=== PATIENT | female | born 1945 | race Caucasian/White ===

== ENCOUNTER 2016-04-27 06:51 | Day surgery (SDC) | payer MEDICARE ==
[2016-04-15 09:33] VITALS: BP 155/71
[~2016-04-27 06:51] MED LIST: LACTULOSE 10 G/15 ML BTL PO PRN
--- OUTSIDE RECORDS SUMMARY | 2016-04-27 06:54 | XMS REPORT | Continuity of Care Document ---
:1945 Author Organization [facility] ([facility]) Address [address] [place] [address] Phone [phone] Care Team Providers Name Role Phone Alison Ghotra Primary Care Provider [phone] Source Comments This disclosure is being made pursuant to the Care Everywhere program, applicable federal and state laws, and may not contain all informaitonavailable regarding this patient.[facility] ([facility]) Active Allergies and Adverse Reactions Allergen Noted Date Severity Reactions Comments Cephalexin 02/12/2015 Rash Doxycycline 02/12/2015 Urticaria (Hives) Quinolones 02/12/2015 Urticaria (Hives) Current Medications Prescription Sig. Disp. Refills Start Date End Date Status buPROPion (WELLBUTRIN Take 300 mg Active XL) 300 mg extended by mouth release tablet 24 hour Every morning escitalopram oxalate Take 20 mg Active 20 mg tablet by mouth daily gemfibrozil 600 mg Take 600 mg Active tablet by mouth 2 times daily atenolol 50 mg tablet Take 50 mg Active by mouth daily ascorbic acid (VITAMIN Take 500 mg Active C) 500 mg tablet by mouth daily magnesium oxide 250 mg Take 250 mg Active tablet by mouth daily aspirin 81 mg EC Take 81 mg Active tablet by mouth daily calcium Take 1 Active carbonate-vitamin D3 tablet by w/ minerals 600 mg mouth daily calcium- 400 unit per tablet docusate 100 mg Take 1 14 capsule 1 04/03/2015 Active capsule capsule (100 mg total) by mouth 2 times daily as needed. ondansetron 8 mg Take 1 30 tablet 5 04/28/2015 Active tablet tablet (8 mg total) by mouth every 6 hours as needed. PROchlorPERAZINE 10 mg Take 1 30 tablet 5 04/28/2015 Active tablet tablet (10 mg total) by mouth every 6 hours as needed. SF 5000 PLUS 1.1 % 4 07/18/2015 Active dental cream letrozole 2.5 mg Take 1 90 tablet 3 09/01/2015 Active tablet tablet (2.5 mg total) by mouth daily. dexlansoprazole Take 60 mg Active (DEXILANT) [address] by mouth capsule daily. VITAMIN D2 50,000 unit Take 50,000 1 02/07/2015 Discontinued capsule Units by 7 mouth every week Active Problems Problem Noted Date PONV (postoperative nausea and vomiting) 04/03/2015 Carcinoma of breast 02/12/2015 Malignant neoplasm of right female breast 02/03/2015 Most Recent Encounters Date Type Specialty Providers Description 04/12/2016 Hospital Encounter Hematology and [facility] Subj: Upcoming Appt Oncology MD Mamta Reminder 03/18/2016 Hospital Encounter Hematology and [facility] Subj: Upcoming Appt Oncology MD Mamta Reminder 02/16/2016 Hospital Encounter Hematology and [facility] Subj: Upcoming Appt Oncology MD Mamta Reminder Social History Tobacco Use Types Packs/Day Years Used Date Never Smoker Smokeless Tobacco: Never Used Tobacco Cessation:Counseling Given: Yes Comments: Alcohol Use Drinks/Week oz/Week Comments Yes 1 Cans of beer Last Filed Vital Signs Vital Sign Reading Time Taken Blood Pressure 130/78 04/12/2016 9:00 AM MACHINE II [employer] Pulse 76 04/12/2016 9:00 AM MACHINE [employer] Temperature 37 C (98.6 F) 04/12/2016 9:00 AM MACHINE II TR[employer]MER Respiratory Rate 20 04/12/2016 9:00 AM MACHINE II TR[employer] Height 1.626 m (5' 4") 04/28/2015 2:47 PM [employer]ACH[facility] [employer] Weight 92.534 kg (204 lb) 04/12/2016 9:00 AM MACHINE II TR[employer]MER Body Mass Index 35 04/12/2016 9:00 AM MACHINE II TR[employer]MER Oxygen Saturation 97% 11/17/2015 11:00 AM CDT Plan of Care Date Type Specialty Providers Description 06/02/2016 Appointment Radiology Chief Comp: Patient Reported Reason For Visit 06/02/2016 Appointment Srg Oncology Sang Saunders MD Chief Comp: Patient [address] [place] [address] [phone] (Fax) Health Maintenance Due Date Last Done Comments HCV Screening 1945 Hepatitis B Vaccine (1 of 3 - Primary Series) 1945 Tdap Vaccine 1957 Lipid Disorder Screening 1964 Td Vaccine 1963 Mammogram 1986 Colonoscopy 12/23/1996 Zoster Vaccine 2006 Osteoporosis Screening (DXA Bone Density) 12/25/2011 Pneumococcal Vaccine (1 of 2 - PCV13) 12/25/2011 Influenza Vaccine: Seasonal (#1) 10/06/2015 Results from Last 3 Months Not on file
== END 2016-04-27 06:52 | disposition home or self-care (01) ==
LOC: AMB 06:51
PROVIDERS: ATTEND Nurse Practitioner
DX: R14.2 Eructation (principal); K21.9 Gastro-esophageal reflux disease without esophagitis